=== PATIENT | female | born 1990 | race African-American/Black ===

== ENCOUNTER 2018-09-01 23:48 | Emergency (ER) | payer SELFPAY ==
[~2018-09-01] VITALS: Ht 162.6 cm; Wt 60.3 kg
[2018-09-02 00:15] LABS: Basophils # (auto) 0 uL; Basophils % (auto) 0.4 % (0.0-2.0); Eosinophils # (auto) 0.1 uL; Eosinophils % (auto) 0.5 % (0.0-7.0); Hemoglobin 13.3 g/dL (12.2-16.2); Lymphocytes # (auto) 2.4 uL; Lymphocytes % (auto) 19.6 % (10.0-50.0); Mean Corpuscular Hemoglobin 32.2 pg (28.0-32.0); Mean Corpuscular Volume 92.2 fL (80.0-100.0); Monocytes # (auto) 0.7 uL; Monocytes % (auto) 5.5 % (0.0-12.0); Neutrophils # (auto) 9.2 uL; Platelet Count (auto) 249 10^3/uL (140-450); Red Blood Cells 4.12 10^6/uL (4.0-5.20); Red Cell Distribution Width 12.8 % (11.8-14.3); White Blood Cell 12.4 10^3/uL (4.4-10.8)
[2018-09-02 00:41] LABS: Albumin 3.3 g/dL (3.4-5.0); BUN/Creatinine Ratio 8.1; Calcium 8.7 mg/dL (8.5-10.1); Potassium 3.8 mmol/L (3.5-5.1)
[2018-09-02 00:43] LABS: Bilirubin, Total 0.2 mg/dL (0.2-1.0); Total Protein 7.4 g/dL (6.4-8.2)
[2018-09-02 02:45] LABS: Urine Bacteria MOD /hpf (None Seen); Urine Blood 3+ /uL (Negative); Urine Hyaline Cast FEW /lpf (0 - 2); Urine Specific Gravity 1.007 (1.001-1.035); Urine WBC 238 /hpf (0 - 5); Urine WBC Clumps PRESENT /hpf (None Seen)
[2018-09-02] MEDS ORDERED: SODIUM CHLORIDE 0.9% 1,000 ML IV ONE (03:45)
[2018-09-02 04:40] VITALS: BP 99/63
== END 2018-09-02 05:40 | disposition home or self-care (01) ==
LOC: ER 23:48
DX: O20.0 Threatened abortion (principal); O23.42 Unspecified infection of urinary tract in pregnancy, second trimester; E86.0 Dehydration; Z3A.17 17 weeks gestation of pregnancy
CPT/HCPCS: 36415; 76805; 80053; 81001; 84702; 85025; 96360